=== PATIENT | male | born 1955 | race Caucasian/White ===

== ENCOUNTER 2017-08-28 16:53 | Emergency (ER) | payer OTHER ==
[2017-08-28 17:56] VITALS: BP 116/83
--- NOTE | 2017-08-28 17:59 | UC ---
Skin Complaint HPI - HPI Summary HPI Summary: pt has had Lyme disease 4 yrs ago. and was treated. 4 days ago after working outside in [place] he noticed a red amelia onb back-no tick seen. now red amelia is expanding. no itch or pain. Pt has had a mild headache for 2 days, no joint pain - History of Current Complaint Time Seen by Provider: 08/28/17 17:47 Stated Complaint: TICK BITE Hx Obtained From: Patient Onset/Duration: Gradual Onset Current Severity: None Location: Other - L mid back Aggravating Factor(s): Nothing Alleviating Factor(s): Nothing Associated Signs & Symptoms: Positive: Negative Related History: Insect Bite/Sting Similar Episode/Dx as: Lyme in past - Allergy/Home Medications Allergies/Adverse Reactions: Allergies Allergy/AdvReac Type Severity Reaction Status Date / Time No Known Allergies Allergy Verified 08/28/17 17:56 Review of Systems Constitutional: Negative Skin: Rash Respiratory: Negative Cardiovascular: Negative Gastrointestinal: Negative Musculoskeletal: Negative Neurological: Headache - mild All Other Systems Reviewed And Are Negative: Yes PMH/Surg Hx/FS Hx/Imm Hx Previously Healthy: Yes - Surgical History Surgical History: Yes - hip replacement - Family History Known Family History: Positive: None - Social History Occupation: Employed Full-time Lives: With Family Alcohol Use: Occasionally Substance Use Type: None Smoking Status (MU): Never Smoked Tobacco Physical Exam Triage Information Reviewed: Yes Appearance: Well-Appearing, No Pain Distress, Well-Nourished Vital Signs Reviewed: Yes Respiratory Exam: Normal Cardiovascular Exam: Normal Musculoskeletal Exam: Normal Neurological Exam: Normal Neurological: Positive: Alert Psychological Exam: Normal Skin: Positive: rashes - 4cm round erythemic flat rash with central PW ([place]) , no noticeable bullseye so far Course/Dx - Differential Diagnoses - Skin Complaint Differential Diagnoses: Poison Angel[place], Tick Born Illness - Diagnoses Provider Diagnoses: bug bite, rash Discharge - Sign-Out/Discharge Documenting (check all that apply): Discharge/Admit/Transfer - Discharge Plan Condition: Good Disposition: HOME Prescriptions: DOXYcycline CAP(*) [DOXYcycline 100MG CAP(*)] 100 mg PO BID #28 cap Patient Education Materials: Tick Bite (ED), Lyme Disease (ED) Referrals: No Primary Care Phys,NOPCP [Primary Care Provider] - Additional Instructions: take doxycycline as prescribed - avoid sun follow-up with your provider in [place] next week return here for any change in symptoms - Billing Disposition and Condition Condition: GOOD Disposition: Home
[2017-08-28] MEDS ORDERED: DOXYcycline CAP(*) 100 MG PO ONE (18:00)
== END 2017-08-28 18:09 | disposition home or self-care (01) ==
LOC: UCEAST 16:53
DX: R21 Rash and other nonspecific skin eruption (principal); S20.462A Insect bite (nonvenomous) of left back wall of thorax, initial encounter; W57.XXXA Bitten or stung by nonvenomous insect and other nonvenomous arthropods, initial encounter; Y93.9 Activity, unspecified; Y92.9 Unspecified place or not applicable; Z86.19 Personal history of other infectious and parasitic diseases; Z96.649 Presence of unspecified artificial hip joint
CPT/HCPCS: 99202; A9270-GY; G0463

== ENCOUNTER 2017-08-29 12:43 | Emergency (ER) | payer OTHER ==
--- NOTE | 2017-08-29 13:16 | UC ---
UC General HPI - HPI Summary HPI Summary: Seen last night here for Tick bite and started on Doxycylcine. 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 Developed shaking chills, and sweats last night after he left here. Admitted one week for 2013 with similar situation. Called PMD and Rocephin was recommended. - History of Current Complaint Chief Complaint: UCGeneralIllness Stated Complaint: RE-CK LYME,SEEN LAST NIGHT Time Seen by Provider: 08/29/17 13:15 Pain Intensity: 3 - Allergy/Home Medications Allergies/Adverse Reactions: Allergies Allergy/AdvReac Type Severity Reaction Status Date / Time No Known Allergies Allergy Verified 08/29/17 13:10 PMH/Surg Hx/FS Hx/Imm Hx - Surgical History Surgical History: Yes Surgery Procedure, Year, and Place: Left hip replacement - Family History Known Family History: Positive: None - Social History Alcohol Use: Occasionally Substance Use Type: None Smoking Status (MU): Never Smoked Tobacco Physical Exam Vital Signs: Initial Vital Signs Temp 98.6 F 08/29/17 13:03 Pulse 70 08/29/17 13:03 Resp 18 08/29/17 13:03 BP 125/79 08/29/17 13:03 Pulse Ox 99 08/29/17 13:03 Discharge - Discharge Plan Referrals: No Primary Care Phys,NOPCP [Primary Care Provider] -
[2017-08-29 13:30] VITALS: BP 125/79
[2017-08-29] MEDS ORDERED: cefTRIAXone VIAL(*) 1,000 MG VIAL IM ONE (13:49)
[2017-08-29] MEDS ORDERED: Lidocaine 1%* 5 ML VIAL ONE (13:57)
--- NOTE | 2017-08-29 14:00 | UC ---
Skin Complaint HPI - HPI Summary HPI Summary: The patient is a 62-year-old male who was seen here yesterday for presumed Lyme disease. He was started on doxycycline. He states that last night he had severe headache and myalgias arthralgias,he felt feverish and had rigors. 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 He was hospitalized for over a week. He states that last night symptoms seemed very reminiscent of this. He is from [place]. He suspects that the tick bite that caused current bull's-eye rash occurred while in [place]. - History of Current Complaint Chief Complaint: UCGeneralIllness Time Seen by Provider: 08/29/17 13:15 Stated Complaint: RE-CK LYME,SEEN LAST NIGHT Hx Obtained From: Patient Onset/Duration: Gradual Onset, Lasting Days Timing: Constant Onset Severity: Mild Current Severity: Mild Pain Intensity: 3 Pain Scale Used: 0-10 Numeric Location: Other - back Character: Redness Aggravating Factor(s): Nothing Alleviating Factor(s): Nothing Associated Signs & Symptoms: Positive: Fever, Chills, Rash - Allergy/Home Medications Allergies/Adverse Reactions: Allergies Allergy/AdvReac Type Severity Reaction Status Date / Time No Known Allergies Allergy Verified 08/29/17 13:10 Review of Systems Constitutional: Fatigue Skin: Rash Eyes: Negative ENT: Negative Respiratory: Negative Cardiovascular: Negative Gastrointestinal: Negative Genitourinary: Negative Motor: Negative Neurovascular: Negative Musculoskeletal: Arthralgia, Myalgia Neurological: Headache Psychological: Negative Is Patient Immunocompromised?: No All Other Systems Reviewed And Are Negative: Yes PMH/Surg Hx/FS Hx/Imm Hx Previously Healthy: Yes - Surgical History Surgical History: Yes Surgery Procedure, Year, and Place: Left hip replacement - Family History Known Family History: Positive: Hypertension - Social History Alcohol Use: Occasionally Substance Use Type: None Smoking Status (MU): Never Smoked Tobacco Physical Exam Triage Information Reviewed: Yes Appearance: Well-Appearing, No Pain Distress, Well-Nourished Vital Signs: Initial Vital Signs Temp 98.6 F 08/29/17 13:03 Pulse 70 08/29/17 13:03 Resp 18 08/29/17 13:03 BP 125/79 08/29/17 13:03 Pulse Ox 99 08/29/17 13:03 Vital Signs Reviewed: Yes Eyes: Positive: Conjunctiva Clear ENT: Positive: Hearing grossly normal. Negative: Nasal congestion, Nasal drainage, Trismus, Muffled voice, Hoarse voice Neck: Positive: Supple, Nontender Respiratory: Positive: Lungs clear, Normal breath sounds, No respiratory distress, No accessory muscle use Cardiovascular: Positive: RRR, No Murmur Musculoskeletal: Positive: ROM Intact, No Edema Neurological: Positive: Alert Psychological Exam: Normal Skin: Positive: Other - 7x10 cm rash c/w E.M. near left scapula Course/Dx - Diagnoses Provider Diagnoses: Lyme disease. possible additional tick bourne illness Discharge - Sign-Out/Discharge Documenting (check all that apply): Discharge/Admit/Transfer - Discharge Plan Condition: Stable Disposition: HOME Patient Education Materials: Lyme Disease (ED) - Billing Disposition and Condition Condition: STABLE Disposition: Home Images Front/Back of Body, Lg ([place]): 1 - rash
[2017-08-29 18:35] LABS: ABS Basophils 0 10^3/ul (0-0.2); ABS Eosinophils 0.1 10^3/ul (0-0.6); ABS Lymphocytes 0.8 10^3/ul (1.0-4.8); ABS Monocytes 0.7 10^3/ul (0-0.8); ABS Neutrophils 5.8 10^3/ul (1.5-7.7); ABS Nucleated RBC 0 10^3/ul; Eosinophil % 0.8 % (0-6); Hematocrit 38 % (42-52); Hemoglobin 13.4 g/dl (14.0-18.0); Lymphocyte % 10.3 % (25-47); Mean Corpuscular HGB Conc 35 g/dl (31-36); Mean Corpuscular Hemoglobin 32 pg (27-31); Mean Corpuscular Volume 92 fL (80-94); Mean Platelet Volume 8.4 um3 (7.4-10.4); Nucleated Red Blood Cells % 0.1; Platelet Count 131 10^3/ul (150-450); Red Blood Count 4.15 10^6/ul (4.00-5.40); Red Cell Distribution Width 14 % (10.5-15); White Blood Count 7.4 10^3/ul (3.5-10.8)
--- NOTE | 2017-08-30 07:22 | UC ---
- Progress Note Progress Note: PLS CALL PT. CBC WITH VERY SLIGHT ANEMIA AND LOW PLATELET COUNT. NO ACUTE INTERVENTION INDICATED AT PRESENT BUT SHOULD FOLLOW WITH PCP. - CLAUDIA JOSHI MD Discharge - Sign-Out/Discharge Documenting (check all that apply): Post-Discharge Follow Up - Discharge Plan Condition: Stable Disposition: HOME Prescriptions: ceFUROXime TAB(*) [Ceftin TAB(*)] 250 mg PO BID #14 tab Patient Education Materials: Lyme Disease (ED) Referrals: No Primary Care Phys,NOPCP [Primary Care Provider] - Additional Instructions: blood work pending will add ceftin to your regimen see your MD early next week - Billing Disposition and Condition Condition: STABLE Disposition: Home
== END 2017-08-29 14:12 | disposition home or self-care (01) ==
LOC: UCEAST 12:43
DX: A69.20 Lyme disease, unspecified (principal); D64.9 Anemia, unspecified; D69.6 Thrombocytopenia, unspecified
CPT/HCPCS: 36415; 85025; 86617; 86618; 86666; 86753; 96372; 99212; G0463; J0696